=== PATIENT | male | born 1975 | race African-American/Black ===

== ENCOUNTER 2021-04-15 23:56 | Inpatient (IN) | payer SELFPAY ==
[~2021-04-15] VITALS: Ht 182.9 cm; Wt 108.9 kg
[2021-04-16] MEDS ORDERED: dilTIAZem 25 MG/5 ML VIAL IV ONE ×2 (00:45→03:15)
[2021-04-16 01:27] LABS: Hemoglobin 12.4 g/dL (13.5-17.5)
[2021-04-16 01:31] LABS: Basophils # (auto) 0 10 ^3/uL (0-0.2); Basophils % (auto) 0.5 % (0.0-2.0); Eosinophils # (auto) 0 10 ^3/uL (0-0.8); Eosinophils % (auto) 0.1 % (0.0-7.0); Hematocrit 39.5 % (41.0-53.0); Lymphocytes # (auto) 3.2 10 ^3/uL (0.4-5.4); Lymphocytes % (auto) 43.2 % (10.0-50.0); Mean Corpuscular Hemoglobin 22.7 pg (28.0-32.0); Mean Corpuscular Hgb Conc. 31.3 g/dL (32.0-36.0); Mean Corpuscular Volume 72.5 fL (80.0-100.0); Monocytes # (auto) 0.9 10 ^3/uL (0-1.3); Neutrophils # (auto) 3.2 10 ^3/uL (1.6-8.6); Neutrophils % (auto) 44.2 % (37.0-80.0); Nucleated Red Blood Cells % 0.2 %; Red Blood Cells 5.45 10^6/uL (4.5-5.90); Red Cell Distribution Width 16.6 % (11.8-14.3); White Blood Cell 7.3 10^3/uL (4.4-10.8)
[2021-04-16 01:40] LABS: Alanine Aminotransferase 86 U/L (16-61); Albumin 2.7 g/dL (3.4-5.0); Anion Gap 10 (5-15); Aspartate Aminotransferase 45 U/L (15-37); Blood Urea Nitrogen 17 mg/dL (7-18); Calcium 8.4 mg/dL (8.5-10.1); Carbon Dioxide 23 mmol/L (21-32); Chloride 112 mmol/L (98-107); GFR African American 75 mL/min; GFR Non-African American 62 mL/min; Glucose 107 mg/dL (74-106); Potassium 4.2 mmol/L (3.5-5.1); Sodium 145 mmol/L (136-145)
[2021-04-16 01:45] LABS: Alkaline Phosphatase 97 U/L (45-117); Bilirubin, Total 0.3 mg/dL (0.2-1.0)
[2021-04-16] MEDS ORDERED: dilTIAZem HCL 60 MG TAB GT ONE (02:45)
[2021-04-16] MEDS ORDERED: HYDROcodone-ACET 5/325MG TAB PO PRN (03:15)
[2021-04-16] MEDS ORDERED: NITROGLYCERIN 0.4 MG SL TAB SL PRN (03:15)
[2021-04-16] MEDS ORDERED: MORPHINE SULFATE 4 MG/ML SYR/VIAL IV PRN (03:15)
[2021-04-16] MEDS ORDERED: MORPHINE SULFATE INJECTION 2 MG/ML SYRG IV PRN (03:15)
[2021-04-16] MEDS ORDERED: ACETAMINOPHEN 325 MG TAB PO PRN (03:15)
[2021-04-16] MEDS ORDERED: DOCUSATE SOD 100 MG CAP PO PRN (03:15)
[2021-04-16] MEDS ORDERED: ONDANSETRON HCL 4 MG/2 ML VIAL IV PRN (03:15)
[2021-04-16] MEDS ORDERED: SODIUM CHLORIDE 0.9% 1,000 ML IV ONE (04:00)
[2021-04-16 04:59] LABS: Basophils # (auto) 0 10 ^3/uL (0-0.2); Basophils % (auto) 0.6 % (0.0-2.0); Eosinophils # (auto) 0 10 ^3/uL (0-0.8); Hematocrit 36.8 % (41.0-53.0); Hemoglobin 11.6 g/dL (13.5-17.5); Lymphocytes # (auto) 3.1 10 ^3/uL (0.4-5.4); Lymphocytes % (auto) 44.4 % (10.0-50.0); Mean Corpuscular Hemoglobin 22.7 pg (28.0-32.0); Mean Corpuscular Hgb Conc. 31.6 g/dL (32.0-36.0); Mean Corpuscular Volume 71.9 fL (80.0-100.0); Monocytes # (auto) 0.9 10 ^3/uL (0-1.3); Monocytes % (auto) 13.5 % (0.0-12.0); Neutrophils # (auto) 2.9 10 ^3/uL (1.6-8.6); Neutrophils % (auto) 41.5 % (37.0-80.0); Red Blood Cells 5.12 10^6/uL (4.5-5.90); Red Cell Distribution Width 16.3 % (11.8-14.3); White Blood Cell 6.9 10^3/uL (4.4-10.8)
[2021-04-16 05:14] LABS: Albumin 2.5 g/dL (3.4-5.0); BUN/Creatinine Ratio 12.8; Calcium 8.3 mg/dL (8.5-10.1); Potassium 4.6 mmol/L (3.5-5.1)
[2021-04-16 05:22] LABS: Bilirubin, Total 0.3 mg/dL (0.2-1.0); Total Protein 5.5 g/dL (6.4-8.2)
[2021-04-16] MEDS: SODIUM CHLOR 0.9% PF (SALINE LOCK) 10ML VIAL/SYR IV SCH ×3 (08:03→22:00)
[2021-04-16 08:36] LABS: Phosphorus 3.5 mg/dL (2.5-4.90)
[2021-04-16] MEDS ORDERED: DIGOXIN (250MCG/ML) 2 ML AMPULE IV ONE (08:45)
[2021-04-16] MEDS ORDERED: DIGOXIN (250MCG/ML) 2 ML AMPULE ONE ×2 (08:56→09:31)
[2021-04-16] MEDS: CARVEDILOL 3.125 MG TAB PO SCH ×2 (09:10→21:50)
[2021-04-16] MEDS ORDERED: FUROSEMIDE 40 MG/4 ML VIAL IV SCH (10:00)
[2021-04-16] MEDS ORDERED: METOPROLOL TARTRATE 25 MG TAB PO SCH (10:00)
[2021-04-16] MEDS ORDERED: dilTIAZem 120MG ER CAP PO SCH (10:00)
[2021-04-16] MEDS ORDERED: ASPirin 81 mg TAB PO SCH (10:00)
[2021-04-16 18:00] VITALS: BP 131/97
[2021-04-16] MEDS ORDERED: ATORVASTATIN 20 MG TAB PO SCH (22:00)
[2021-04-16] MEDS: CARVEDILOL 12.5 MG TAB PO SCH (23:29)
[2021-04-16] MEDS ORDERED: CARVEDILOL 12.5 MG TAB ONE (23:43)
[2021-04-17] MEDS: CARVEDILOL 12.5 MG TAB PO SCH (00:29)
[2021-04-17 04:30] VITALS: BP 109/74
[2021-04-17] MEDS ORDERED: FUROSEMIDE 20 MG TAB PO SCH (10:00)
[2021-04-17] MEDS ORDERED: DIGOXIN 0.125 MG TAB PO SCH (10:00)
== END 2021-04-17 04:41 | disposition left against medical advice (07) | DRG 308 ==
LOC: ER 23:56 → TELE 04-16 03:13
PROVIDERS: ADMIT Nurse Practitioner Family; ATTEND Nurse Practitioner Family
DX: I48.91 Unspecified atrial fibrillation (principal); I50.23 Acute on chronic systolic (congestive) heart failure; I11.0 Hypertensive heart disease with heart failure; E03.9 Hypothyroidism, unspecified; E05.90 Thyrotoxicosis, unspecified without thyrotoxic crisis or storm; E66.9 Obesity, unspecified; E78.5 Hyperlipidemia, unspecified; Z20.822 Contact with and (suspected) exposure to COVID-19; E88.09 Other disorders of plasma-protein metabolism, not elsewhere classified; G20 Parkinson's disease; Z53.29 Procedure and treatment not carried out because of patient's decision for other reasons; I45.6 Pre-excitation syndrome; R79.89 Other specified abnormal findings of blood chemistry; Z68.32 Body mass index [BMI] 32.0-32.9, adult
CPT/HCPCS: 36415; 71045; 80053; 83735; 83880; 84100; 84443; 84484; 85025; 86376; 86800; 87426; 93005; 93306; 96361; 96374; 96375; G0378